=== PATIENT | female | born 1970 | race Two or more races ===

== ENCOUNTER 2023-05-05 12:10 | Emergency (ER) | payer MEDICAID, OTHER ==
[~2023-05-05] VITALS: Ht 160 cm; Wt 81.0 kg
[2023-05-05] MEDS ORDERED: CEPH500C PO (16:45)
[2023-05-05] MEDS ORDERED: IBUP-1455 PO (16:45)
[2023-05-05 17:26] VITALS: BP 115/62; PULSE 73; RESP 18; O2SAT 97
== END 2023-05-05 16:45 | disposition home or self-care (01) ==
LOC: ER 12:10
DX: N61.0 Mastitis without abscess (principal); R53.83 Other fatigue